=== PATIENT | male | born 1955 | race Caucasian/White ===

== ENCOUNTER 2020-02-04 07:38 | Outpatient (CLI) | payer OTHER, SELFPAY ==
--- NOTE | 2020-02-04 07:41 | MR_ITS ---
WS: [id number] MRI HEAD WITH CONTRAST TECHNIQUE: Sagittal T1, T2 axial, T2 axial FLAIR, axial susceptibility weighted imaging, axial diffus ion weighted images, and coronal T2 images were obtained. Pre and post-T1 axial and post T1 coronal i mages. ADC and FSPGR images. CLINICAL INFORMATION: EYE DISORDER;FACIAL WEAKNESS;OSTEOARTHRITIS COMPARISON: None. FINDINGS: Images moderately degraded by motion artifact. No evidence of restricted diffusion to suggest acute ischemia on the obtained imaging. Cerebellum not entirely included on the diffusion imaging. Ventricular system and basal cisterns are patent. Mild s mall vessel changes. Mild parenchymal volume loss. Normal posterior fossa. Normal vascular flow voids at the skull base. No extra-axial fluid collections. Mild mucosal thickening in the paranasal sinuse s. Mastoid air cells are well aerated. Moderate symmetric atrophy involving the temporal lobes and hippocampal formations. Normal optic alysa sm and pituitary infundibulum. Small punctate focus of hemosiderin on the susceptibility weighted dali ges in the left parietal lobe. No abnormal gadolinium enhancement. Normal dural venous sinuses. Trista l cavernous sinuses and Meckel's cave.Enhancing nodule right parotid tail measuring 11 mm. This is at the edge of the [id number]. MR/MR head wo/w con [id number] IMPRESSION: Images moderately degraded by motion artifact. 1. No evidence of restricted diffusion to suggest acute ischemia. Cerebellum n ot entirely included on the diffusion images. 2. Mild small vessel changes with mild parenchymal volume loss. 3. Moderate symmetric atrophy involving the temporal lobes and hippocampal for mations. 4. No abnormal gadolinium enhancement. 5. Mild polypoid mucosal thickening in the paranasal sinuses. Mastoid air cell s are well aerated. 6. Single punctate focus of hemosiderin in the left parietal lobe on the susce ptibility weighted images. 7. Enhancing nodule right parotid tail measuring 11 mm. This is at the edge of the [id number]. This can be followed up with contrast-enhanced neck CT.
== END 2020-02-04 07:39 | disposition home or self-care (01) ==
PROVIDERS: PCP Electrodiagnostic Medicine; Visit Provider Electrodiagnostic Medicine
DX: H57.9 Unspecified disorder of eye and adnexa (principal); R29.810 Facial weakness; M19.90 Unspecified osteoarthritis, unspecified site; G31.9 Degenerative disease of nervous system, unspecified
CPT/HCPCS: 70553; A9579

== ENCOUNTER → 2020-07-19 11:30 | Outpatient (BNVA) | payer OTHER, SELFPAY | PROVIDERS: PCP Electrodiagnostic Medicine; Visit Provider Specialist | DX: G51.32 Clonic hemifacial spasm, left (principal); R29.810 Facial weakness; Z87.891 Personal history of nicotine dependence | CPT/HCPCS: 99204 ==

== ENCOUNTER 2020-07-19 14:42 | Outpatient (CLI) | payer OTHER, SELFPAY ==
[2020-07-19 15:53] LABS: Erythrocyte Sedimentation Rate 15 mm/hr (0-10)
[2020-07-19 16:18] LABS: C Reactive Protein 8.5 mg/L (0.0-4.9)
[2020-07-23 19:37] LABS: Acetylcholine Receptor Block <15 (<15)
[2020-07-26 01:49] LABS: Acetylcholine Receptor Binding <0.30 nmol/L
[2020-07-28 17:01] LABS: Acetylcholine Recept Modulatin <1
== END 2020-07-19 14:43 | disposition home or self-care (01) ==
PROVIDERS: PCP Electrodiagnostic Medicine; Visit Provider Specialist
DX: G70.00 Myasthenia gravis without (acute) exacerbation (principal); M31.6 Other giant cell arteritis
CPT/HCPCS: 36415; 83516; 83519; 85651; 86140

== ENCOUNTER 2020-08-11 13:05 | Outpatient (CLI) | payer OTHER, SELFPAY ==
--- NOTE | 2020-08-11 13:11 | CT_ITS ---
WS: [id number] CT NECK TECHNIQUE: Noncontrast CT of the neck with coronal and sagittal reformatted images. CLINICAL INFORMATION: G70.00 - Myasthenia gravis without (acute) exacerbation COMPARISON: MRI February 04, 2020 DLP: [address] scans at [facility] use at least one of these dose optimization techniques: automat ed exposure control; mA and/or kV adjustment per patient size (includes targeted exams where dose is matched to clinical indication); or iterative reconstruction. FINDINGS: Enhancing lesion right parotid tail measuring 10.5 x 10.7 x 16.5 mm AP by transverse by craniocaudal. This is unchanged since the prior MRI February 04, 2020. Differential considerations include small p arotid neoplasm versus abnormally enlarged intraparotid lymph node. Consider ENT consultation for fur ther evaluation. Otherwise a few incidental parotid and intraparotid lymph nodes bilaterally. Submandibular glands are normal. Tongue base appears normal. Slight asymmetry to the right palatine t onsil. No focal enhancing lesions. This can be further evaluated with direct visualization. Paraphary ngeal fat is normal. Normal posterior nasopharynx. No evidence of supraglottic or glottic mass. Subgl ottic airway is normal. Normal thyroid gland. Mastoid air cells are well aerated. Polypoid mucosal thickening involving the m axillary ostia and ethmoid air cells bilaterally. Spondylitic changes cervical spine. Hypertrophic ch anges lower cervical spine. Normal C1-2 articulation. No cervical lymphadenopathy. CT/CT neck wo con [id number] IMPRESSION: 1. Again seen is the enhancing right parotid tail lesion measuring 10.5 x 10.7 x 16.5 mm AP by transverse by craniocaudal. This appears stable since the prio r MRI February 04, 2020.Differential considerations include small parotid neopl asm versus abnormally enlarged intraparotid lymph node. Consider ENT consultati on for further evaluation. Recommend 6 month follow-up contrast-enhanced neck C T. 2. Parotid glands otherwise normal. 3. Slight asymmetric fullness to the right palatine tonsil may be incidental b ut is nonspecific. Recommend direct visualization. 4. No evidence of supraglottic or glottic mass. Normal subglottic airway. 5. Normal submandibular glands. 6. No cervical lymphadenopathy. 7. Polypoid mucosal thickening in the paranasal sinuses.
--- NOTE | 2020-08-11 13:30 | CT_ITS ---
WS: [id number] CTA HEAD AND NECK TECHNIQUE: Contrast enhanced CTA of the head and neck with coronal and sagittal reformatted images an d maximum intensity projection (MIP) images. NASCET criteria utilized. CLINICAL INFORMATION: G70.00 - Myasthenia gravis without (acute) exacerbation COMPARISON: MRI January 2020 DLP: 1599.[address] scans at [facility] use at least one of these dose optimization techniques: automat ed exposure control; mA and/or kV adjustment per patient size (includes targeted exams where dose is matched to clinical indication); or iterative reconstruction. FINDINGS: Mild small vessel changes. Moderate parenchymal volume loss. No evidence of intracranial he morrhage or mass effect. Mastoid air cells are well aerated. Polypoid mucosal thickening in the paran kandice sinuses. Partial opacification of the ethmoid air cells and maxillary ostia. RIGHT: Right common carotid artery is patent. Mild calcified atheromatous plaque right carotid bulb e xtending into the ICA. No significant right ICA stenosis. Right ICA is patent to the skull base. LEFT: Left common carotid artery is patent. Mild atheromatous plaque left carotid bulb extending into the ICA. Left ICA stenosis measures approximately 35%. Left ICA is patent to the skull base. INTRACRANIAL CTA: Small hypoplastic vertebral arteries bilaterally. Both vertebral arteries are patent to the basilar j unction. Diminutive basilar artery with dominant anterior circulation. Normal vascularity to the [place] territory bilaterally. Persistent right [place]. Both ICAs are patent at the skull base. Moderate cavernous carotid calcification. Normal vascularity to the [place]OR[place] and MCA territories bilaterally. No evidence of high-grade proximal stenosis. Mild spondylitic changes cervical spine with hypertrophic changes in the lower cervical spine. Enhanc ing 13 mm parotid lesion right parotid tail is similar to the prior MRI. This will be further discuss ed on the neck CT. CT/CT angio headneck* [id number] IMPRESSION: 1. No significant right ICA stenosis. Left ICA stenosis measures approximately 35%. 2. No flow-limiting intracranial stenosis. Persistent right [place]. 3. Mild intracranial atheromatous disease. 4. Small but patent vertebral arteries bilaterally. Diminutive basilar artery with anterior dominant circulation. 5. Mild small vessel changes with moderate parenchymal volume loss. 6. Polypoid mucosal thickening in the paranasal sinuses with partial opacifica tion of the maxillary ostia.
[2020-08-11 14:37] LABS: Blood Urea Nitrogen 18 mg/dL (8-23); Glomerular Filtration Rate 84.2 mL/min (90-130)
[2020-08-11] MEDS: iohexol 350 mg/mL 100 mL Btl IV (14:53)
== END 2020-08-11 13:06 | disposition home or self-care (01) ==
LOC: RADWPI 13:08
PROVIDERS: PCP Electrodiagnostic Medicine; Visit Provider Specialist
DX: G70.00 Myasthenia gravis without (acute) exacerbation (principal); Z01.812 Encounter for preprocedural laboratory examination; I67.2 Cerebral atherosclerosis
CPT/HCPCS: 36415; 70490; 70496; 70498; 82565; 84520; Q9967

== ENCOUNTER → 2020-09-12 15:18 | Outpatient (BNVA) | payer OTHER, SELFPAY | PROVIDERS: PCP Electrodiagnostic Medicine; Visit Provider Specialist | DX: G51.32 Clonic hemifacial spasm, left (principal); R29.810 Facial weakness; G31.84 Mild cognitive impairment of uncertain or unknown etiology; Z87.891 Personal history of nicotine dependence | CPT/HCPCS: 99214 ==

== ENCOUNTER 2020-10-19 11:42 | Emergency (ER) | payer OTHER, SELFPAY ==
[2020-10-19] VITALS (7 sets, daily range): BP systolic 180–187; BP diastolic 72–131; PULSE 65–149; RESP 16–20; TEMP 37.2; O2SAT 96–98; BMI 35.7
--- NOTE | 2020-10-19 12:28 | XR_ITS ---
WS: [id number] Portable AP upright chest, 10/19/2020 Clinical Data: fever, SOB Comparison: PA and lateral chest, 03/08/2017. Findings: No nodules, masses or effusions are seen. The heart is normal. The pulmonary vascularity is not increased. No pneumonia or pneumothorax is seen. The aortic arch shows minimal calcification. XR/XR chest 1V portable [id number] Impression: Atherosclerosis.
[2020-10-19 12:59] LABS: Basophils % 0.3 %; Hematocrit 49.8 % (42.0-52.0); Hemoglobin 16.6 g/dL (11.7-16.6); Lymphocytes # 0.7 10^3/uL (0.8-4.8); Lymphocytes % 19.5 %; Mean Corpuscular HGB Conc 33.3 g/dL (30.0-36.0); Mean Corpuscular Hemoglobin 29.4 pg (28.0-34.0); Mean Corpuscular Volume 88.3 fL (80-94); Mean Platelet Volume 9.5 fL (7.4-10.4); Monocytes # 0.5 10^3/uL (0.2-0.9); Monocytes % 13.3 %; Neutrophils # 2.46 10^3/uL (1.8-7.7); Neutrophils % 66.6 %; Nucleated Red Blood Cells % 0 %; Platelet Count 191 10^3/cmm (130-400); Red Blood Count 5.64 10^6/uL (4.1-5.3); Red Cell Distribution Width 13.3 % (12.1-15.1); White Blood Count 3.7 10^3/uL (4.0-10.0)
[2020-10-19 13:04] LABS: Influenza A by IFA Negative (Negative); Influenza B by IFA Negative (Negative); SARS Covid-2 Antigen Positive (Negative)
[2020-10-19 14:08] LABS: Fibrinogen 461 mg/dL (174-498)
[2020-10-19 14:11] LABS: D Dimer 0.87 ug/mIFEU (0-0.59)
[2020-10-19 14:16] LABS: Alanine Aminotransferase 26 U/L (0-41); Albumin Level 4.3 g/dL (3.5-5.2); Alkaline Phosphatase 74 IU/L (40-130); Anion Gap 16.4 (5-19); Aspartate Amino Transferase 35 U/L (0-40); Blood Urea Nitrogen 24 mg/dL (8-23); C Reactive Protein 9.8 mg/L (0.0-4.9); Calcium 8.5 mg/dL (8.5-10.5); Carbon Dioxide 26 mmol/L (22-29); Chloride 96 mmol/L (98-107); Ferritin 308 ng/mL (30-400); Globulin 2.8 g/dL (1.3-4.6); Glomerular Filtration Rate 55.1 mL/min (90-130); Glucose 102 mg/dL (65-115); Osmolality Calculated 282 mOsm/kg (285-295); Potassium 4.4 mmol/L (3.5-5.1); Sodium 134 mmol/L (136-145); Total Bilirubin 0.4 mg/dL (0.15-1.2); Total Protein 7.1 g/dL (6.6-8.7)
[2020-10-19 14:17] LABS: Creatine Phosphokinase 363 U/L (39-308); Lactate (Lactic Acid level) 0.9 mmol/L (0.5-2.2)
[2020-10-19 14:20] LABS: Procalcitonin 0.16 ng/mL (0-0.5)
--- NOTE | 2020-10-19 14:36 | W.ED.COVID ---
HPI - COVID General: Chief Complaint: COVID symptoms Stated Complaint: cramps,fever, check oxygen? Time Seen by Provider: 10/19/20 12:04 Source: patient and RN notes reviewed Mode of arrival: ambulatory Limitations: no limitations Triage information: Has fever, cough or shortness of breath. Exposure to COVID + person last 14 days History of Present Illness: HPI Narrative: Patient is a 65 year old male with no significant PMH who presents to the ED with a 7 day history of diarrhea, fever, loss of taste, loss of appetite. He is was sick a few days before his symptoms started. He has a mild cough but no difficulty breathing. No vomiting, has a lot of diarrhea. Because of the above he is here to be evaluated. MD complaint: has COVID symptoms Prior covid testing: no COVID 19 common symptoms: positive fever(s), cough, non-productive cough, fatigue, body aches, loss of sense of smell and/or taste and diarrhea; negative dyspnea, headache(s), throat pain, nasal congestion, nausea or vomiting COVID 19 other sytmptoms: negative chest pressure, chest pain, pleuritic pain, requiring oxygen, requiring more oxygen, respiratory distress, cyanosis, lethargy, confusion, new neurological complaints or other concerning symptoms Onset (ago): day(s) (7) Severity: moderate Pertinent comorbid conditions: obesity COVID Results: SARS-CoV-2 Antigen (Rapid) Positive (Negative) H 10/19/20 12:39 10/19/20 Review of Systems General: Reports: 10 or more systems reviewed and unremarkable except in HPI and below Const: Reports: fever(s), body aches and fatigue ENMT: Denies: throat pain or nasal congestion Card: Denies: chest pain Resp: Reports: non-productive cough; Denies: dyspnea GI: Reports: diarrhea; Denies: nausea or vomiting Neuro: Denies: headache(s) or confusion PFSH ED PFSH: Family History Mother Cancer Liver Father CAD (coronary artery disease) Social History Smoking and tobacco status: former smoker Quit status (tobacco): has quit using tobacco Year quit tobacco: 2019 Alcohol intake: never History of recent travel: No Physical Exam Const: COMMON NORMALS: no acute distress, average body habitus, patient oriented x3, no limitations, healthy appearing, alert and well nourished HENMT: COMMON NORMALS: normocephalic, atraumatic and moist oral mucous membranes HEAD & SCALP: normocephalic and atraumatic Neck/C-Spine: COMMON NORMALS: no meningeal signs and no JVD Resp: COMMON NORMALS: normal respiratory effort, No retractions, No use of accessory muscles, clear to auscultation bilaterally and percussion normal AUSCULTATION: clear to auscultation bilaterally PERCUSSION: percussion normal Cardio: COMMON NORMALS: no JVD, regular rate, regular rhythm, S1 normal heart sound present, S2 normal heart sound present, No gallops present (Cardio), No clicks present (Cardio), No murmurs present (Cardio), No rub (Cardio) and Peripheral pulses 2+ throughout RATE: regular rate RHYTHM: regular rhythm HEART SOUNDS: S1 normal heart sound present and S2 normal heart sound present PERIPHERAL PULSES: Peripheral pulses 2+ throughout GI: COMMON NORMALS: Normal to inspection, nondistended, normoactive bowel sounds present, Soft to palpation, non-tender, No hepatosplenomegaly present, no masses and no bruits PALPATION: Yes Soft to palpation and Yes No hepatosplenomegaly present Extremity: COMMON NORMALS: normal to inspection, full ROM, capillary refill normal, no calf tenderness and no pedal edema Neuro: COMMON NORMALS: patient oriented x3 SENSORIUM/ORIENTATION: Yes alert MENINGEAL SIGNS: Yes no meningeal signs Skin: COMMON NORMALS: no rashes or lesions noted, no wounds, turgor normal, no jaundice, no petechiae and no mottling GENERAL SKIN EXAM: no rashes or lesions noted and turgor normal Course Vital Signs: Vital signs: Vital Signs Temperature 98.9 F 10/19/20 11:54 Pulse Rate 90 10/19/20 16:55 Respiratory Rate 18 10/19/20 16:55 Blood Pressure 181/88 10/19/20 16:55 Pulse Oximetry 96 10/19/20 16:55 MDM - COVID MDM Narrative: Medical decision making narrative: This pleasant 65 year old male presents with a 7 day history of diarrhea, vomiting, fever. In the ED he tested positive for COVID-19, and after counseling he agreed to monoclonal antibody infusion. He meets the criteria. He is not hypoxic. He suffered no adverse reaction to the medication after being observed in the ED for one hour post infusion. He is to f/u with his PCP via telemedicine and he is discharged home with a pulse oximeter to check his oxygen saturation and to return for persistent hypoxia. He had mild rhabdomyolysis and RITA. Medical Records: Attestation: I reviewed the patient's medical records. Lab Data: Attestation: I reviewed the patient's lab results. Labs: Lab Results 10/19/20 10/19/20 10/19/20 Range/Units 12:39 12:39 12:45 WBC 3.7 L (4.0-10.0) 10^3/ uL RBC 5.64 H (4.1-5.3) 10^6/u L Hgb 16.6 (11.7-16.6) g/dL Hct 49.8 (42.0-52.0) % MCV 88.3 (80-94) fL MCH 29.4 (28.0-34.0) pg MCHC 33.3 (30.0-36.0) g/dL RDW 13.3 (12.1-15.1) % Plt Count 191 (130-400) 10^3/c mm MPV 9.5 (7.4-10.4) fL Neut % (Auto) 66.6 % Lymph % (Auto) 19.5 % [place] % (Auto) 13.3 % Eos % (Auto) 0.0 % Baso % (Auto) 0.3 % Neut # (Auto) 2.46 (1.8-7.7) 10^3/u L Lymph # (Auto) 0.7 L (0.8-4.8) 10^3/u L [place] # (Auto) 0.5 (0.2-0.9) 10^3/u L Eos # (Auto) 0.0 (0.0-0.8) 10^3/u L Baso # (Auto) 0.0 (0.0-0.1) 10^3/u L Nucleated RBC % (a uto) 0 % Nucleated RBCs # 0.0 /100WBC Fibrinogen (174-498) mg/dL D-Dimer (0-0.59) ug/mIFE U Sodium Potassium Chloride Carbon Dioxide Anion Gap BUN Creatinine GFR Calculation Glucose Calculated Osmolal ity Lactic Acid Lactate (0.5-2.2) mmol/L Calcium Ferritin Total Bilirubin AST ALT Alkaline Phosphata se Creatine Kinase CK-MB (CK-2) (0-10.4) ng/mL CK-MB (CK-2) Rel I ndex (0.0-5.3) % C-Reactive Protein Total Protein Albumin Globulin Procalcitonin Influenza Type A A g Negative (Negative) Influenza Type B A g Negative (Negative) SARS-CoV-2 Ag (Rap id) Positive H (Negative) 10/19/20 10/19/20 10/19/20 Range/Units 12:45 12:45 13:47 WBC (4.0-10.0) 10^3/ uL RBC (4.1-5.3) 10^6/u L Hgb (11.7-16.6) g/dL Hct (42.0-52.0) % MCV (80-94) fL MCH (28.0-34.0) pg MCHC (30.0-36.0) g/dL RDW (12.1-15.1) % Plt Count (130-400) 10^3/c mm MPV (7.4-10.4) fL Neut % (Auto) % Lymph % (Auto) % [place] % (Auto) % Eos % (Auto) % Baso % (Auto) % Neut # (Auto) (1.8-7.7) 10^3/u L Lymph # (Auto) (0.8-4.8) 10^3/u L [place] # (Auto) (0.2-0.9) 10^3/u L Eos # (Auto) (0.0-0.8) 10^3/u L Baso # (Auto) (0.0-0.1) 10^3/u L Nucleated RBC % (a uto) % Nucleated RBCs # /100WBC Fibrinogen 461 (174-498) mg/dL D-Dimer 0.87 H (0-0.59) ug/mIFE U Sodium Cancelled Potassium Cancelled Chloride Cancelled Carbon Dioxide Cancelled Anion Gap Cancelled BUN Cancelled Creatinine Cancelled GFR Calculation Cancelled Glucose Cancelled Calculated Osmolal ity Cancelled Lactic Acid Cancelled Lactate (0.5-2.2) mmol/L Calcium Cancelled Ferritin Cancelled Total Bilirubin Cancelled AST Cancelled ALT Cancelled Alkaline Phosphata se Cancelled Creatine Kinase Cancelled CK-MB (CK-2) (0-10.4) ng/mL CK-MB (CK-2) Rel I ndex (0.0-5.3) % C-Reactive Protein Cancelled Total Protein Cancelled Albumin Cancelled Globulin Cancelled Procalcitonin Cancelled Influenza Type A A g (Negative) Influenza Type B A g (Negative) SARS-CoV-2 Ag (Rap id) (Negative) 10/19/20 10/19/20 Range/Units 13:47 13:47 WBC (4.0-10.0) 10^3/ uL RBC (4.1-5.3) 10^6/u L Hgb (11.7-16.6) g/dL Hct (42.0-52.0) % MCV (80-94) fL MCH (28.0-34.0) pg MCHC (30.0-36.0) g/dL RDW (12.1-15.1) % Plt Count (130-400) 10^3/c mm MPV (7.4-10.4) fL Neut % (Auto) % Lymph % (Auto) % [place] % (Auto) % Eos % (Auto) % Baso % (Auto) % Neut # (Auto) (1.8-7.7) 10^3/u L Lymph # (Auto) (0.8-4.8) 10^3/u L [place] # (Auto) (0.2-0.9) 10^3/u L Eos # (Auto) (0.0-0.8) 10^3/u L Baso # (Auto) (0.0-0.1) 10^3/u L Nucleated RBC % (a uto) % Nucleated RBCs # /100WBC Fibrinogen (174-498) mg/dL D-Dimer (0-0.59) ug/mIFE U Sodium 134 L Potassium 4.4 Chloride 96 L Carbon Dioxide 26 Anion Gap 16.4 BUN 24 H Creatinine 1.3 H GFR Calculation 55.1 L Glucose 102 Calculated Osmolal ity 282 L Lactic Acid Lactate 0.9 (0.5-2.2) mmol/L Calcium 8.5 Ferritin 308 Total Bilirubin 0.4 AST 35 ALT 26 Alkaline Phosphata se 74 Creatine Kinase 363 H* CK-MB (CK-2) 3.8 (0-10.4) ng/mL CK-MB (CK-2) Rel I ndex (0.0-5.3) % C-Reactive Protein 9.8 H Total Protein 7.1 Albumin 4.3 Globulin 2.8 Procalcitonin 0.16 Influenza Type A A g (Negative) Influenza Type B A g (Negative) SARS-CoV-2 Ag (Rap id) (Negative) Imaging Data: CXR: Attestation: I personally reviewed and interpreted this imaging study as follows: Radiologist's impression: [place] [address] [address]NBaw ReportSigned Patient: Jamilah Cha #: [id number]: 1955cct#:[id number]/Sex: 65 / MADM Date: 10/19/20Loc: ERRoom/Bed:Attending Dr: Ordering Provider/Ordering MD: Tanvi Pérez MD, [facility] [place] Date of Service: 10/19/20 Procedure(s): XR chest 1V portable [id number] Accession Number(s): [id number] Report Number: [id number] WS: [id number] Portable AP upright chest, 10/19/2020 Clinical Data: fever, SOB Comparison: PA and lateral chest, 03/08/2017. Findings: No nodules, masses or effusions are seen. The heart is normal. The pulmonary vascularity is not increased. No pneumonia or pneumothorax is seen. The aortic arch shows minimal calcification. XR/XR chest 1V portable [id number] Impression: Atherosclerosis. Dictated By:Nancy Quintana MDSigned By:Nancy Quintana MDSigned Date/Time:10/19/20 1307DD/ 1306 COVID Results: SARS-CoV-2 Antigen (Rapid) Positive (Negative) H 10/19/20 12:39 10/19/20 Monoclonal Antibody Treatments Inclusion/Exclusion Criteria weight >/= 40 kg and + direct Sars-Cov-2 test less than 7-10 days ago age >/= 65 and BMI >/= 35 not requiring hospitalization, not requiring oxygen (if not chronically on oxygen) and no increase oxygen requirement (if chronically on oxygen) Patient education patient/family/caregiver received/reviewed fact sheet, Emergency Use Authorization/unapproved drug status discussed with patient/family/caregiver, alternatives to this treatment discussed with patient/family/caregiver, risks and benefits of medication reviewed with patient/family/caregiver, patient/family/caregiver given opportunity for questions, which were answered and patient consents to receiving Monoclonal Antibody Treatment Plan for treatment Meets criteria for Monoclonal Antibody infusion Ordering Monoclonal Antibody infusion for today Discharge Plan Discharge Patient Disposition: Home Clinical Impression: COVID-19, Rhabdomyolysis due to COVID-19, RITA (acute kidney injury) Condition: Stable Prescriptions: Continued gabapentin 300 mg capsule 300 mg PO TID Qty: 90 RF: 2 Discharge Orders: Discharge ED (Routine); Ordered 10/19/20 Ordered By: Tanvi Pérez Referrals: Joel Sky DO [Primary Care Provider] - 1-3 days Discharge Diet: Usual diet Discharge Activity: Increase activity as tolerated Patient Instructions: Acute Kidney Injury (GEN), Rhabdomyolysis (ED), Viral Syndrome (ED) Activity Restrictions/Additional Instructions: Return for any new or worsening symptoms. Follow up with your primary care provider within 3 days via telemedicine. Monitor your oxygen levels using the pulse oximeter that you were sent home with, if your oxygen levels drop and stay below 90%. Coding Level of Care Code ED [employer] Exam Comprehensive
[2020-10-19 15:05] LABS: CKMB 3.8 ng/mL (0-10.4)
[2020-10-19 15:36] LABS: Reflex Lactate Order REFLEX LACTIC ORDERD
--- NOTE | 2020-10-19 16:00 | PC.NURSE ---
reviewed patient bp being elevated and that I repeated with manual cuff. he states that he needs to follow up with his regular doctor for his blood pressure and I informed the patient.
--- NOTE | 2020-10-25 13:54 | DCPLANNER ---
cost estimating manager had message that patient received the monoclonal antibody infusion. cost estimating manager called to check on patient after receiving the infusion. Patient stated that he is feeling much better, and that all of the symptoms before the infusion have resolved.
== END 2020-10-19 16:50 | disposition home or self-care (01) ==
PROVIDERS: Emergency Provider Family Medicine; PCP Electrodiagnostic Medicine
DX: U07.1 COVID-19 (principal); M62.82 Rhabdomyolysis; N17.9 Acute kidney failure, unspecified; E66.9 Obesity, unspecified; Z68.35 Body mass index [BMI] 35.0-35.9, adult; Z87.891 Personal history of nicotine dependence
CPT/HCPCS: 71045; 80053; 82550; 82553; 82728; 83605; 84145; 85025; 85378; 85384; 86140; 87426; 87804; 96365; 99284

== ENCOUNTER → 2020-12-29 09:44 | Outpatient (BNVA) | payer OTHER, SELFPAY | PROVIDERS: PCP Electrodiagnostic Medicine; Visit Provider Specialist | DX: G51.32 Clonic hemifacial spasm, left (principal); R29.810 Facial weakness; G31.84 Mild cognitive impairment of uncertain or unknown etiology; Z87.891 Personal history of nicotine dependence | CPT/HCPCS: 64612; J0585 ==

== ENCOUNTER → 2021-03-23 14:35 | Outpatient (BNVA) | payer OTHER, SELFPAY | PROVIDERS: PCP Electrodiagnostic Medicine; Visit Provider Specialist | DX: G51.32 Clonic hemifacial spasm, left (principal); Z87.891 Personal history of nicotine dependence | CPT/HCPCS: 64612; J0585 ==

== ENCOUNTER 2022-11-11 18:28 | Emergency (ER) | payer OTHER, SELFPAY ==
[2022-11-11] VITALS (8 sets, daily range): BP systolic 103–153; BP diastolic 70–114; PULSE 71–87; RESP 12–17; O2SAT 93–98
--- NOTE | 2022-11-11 18:58 | W.ED.ABDPA2 ---
HPI - Abdominal Pain General: Chief Complaint: Abdominal Pain Stated Complaint: abdomen, n/v Time Seen by Provider: 11/11/22 18:30 History of Present Illness: Evaristo Cha is a 67-year-old man that presents to the emergency department with complaints of abdominal pain that started 2 weeks ago. 2 weeks ago he started with diffuse abdominal pain, nausea vomiting diarrhea and a fever of 103. This lasted for about 6 days. He went to [place] [facility] 1 week ago because he believes he had COVID. They would not treat him and therefore he left. Over the last week patient began to feel better. His symptoms did not completely resolve. He was able to start eating regular meals early to mid week. Then last night he began vomiting again, developed a fever and developed diffuse abdominal pain. Patient denies any medical history other than trigeminal neuralgia. The only medication he takes is tramadol. He has had back surgery and knee surgery Associated Symptoms: Denies bloating, chills, constipation, GI cramping, diarrhea, dysuria, fever(s), hematochezia, hematuria, nausea and vomiting Review of Systems General: Reports: 10 or more systems reviewed and unremarkable except in HPI and below Const: Denies: fever(s), chills, change in appetite, change in weight, fatigue or malaise Eyes: Denies: change in vision, eye discomfort, eye discharge or eye redness ENMT: Denies: throat pain, enlarged tonsils, odynophagia, hoarseness, ear or mastoid pain, ear discharge, change in hearing, tinnitus, nasal discharge, nasal congestion, post nasal drip or sinus pain Card: Denies: chest pain, palpitations, irregular heart rhythm, edema, dyspnea on exertion, orthopnea or leg pain with exertion Resp: Denies: dyspnea, productive cough, non-productive cough, wheezing, stridor or chest congestion GI: Denies: abdominal pain, nausea, vomiting, dysphagia, diarrhea, constipation, bloating, GI cramping or hematochezia : Denies: flank pain, dysuria, urinary frequency, urinary urgency, urinary hesitancy, oliguria or hematuria Musc: Denies: neck pain, back pain, extremity pain, joint pain, joint swelling, joint redness, joint warmth or muscle weakness Skin/Breast: Denies: rash, pruritus, erythema, photosensitivity or new lesions Neuro: Denies: headache(s), numbness in extremities, weakness in extremities, sensory changes, lack of coordination, difficulty walking, frequent falls, dizziness, confusion, Slurred speech present, difficulty communicating thoughts, seizure-like activity or involuntary movements Endo: Denies: polyuria, polydipsia or tired all the time [place]/Lymph: Denies: easy bruising or easy bleeding PFSH ED PFSH: Family History Mother Cancer Liver Father CAD (coronary artery disease) Social History Smoking and tobacco status: former smoker Quit status (tobacco): has quit using tobacco Year quit tobacco: 2019 Alcohol intake: never Substance/Drug Use: never Physical Exam Const: COMMON NORMALS: no acute distress, patient oriented x3 and alert GENERAL APPEARANCE: cooperative ORIENTATION/CONSCIOUSNESS: Yes awake, Yes oriented to person, Yes oriented to place and Yes oriented to time HENMT: COMMON NORMALS: normocephalic and atraumatic HEAD & SCALP: normocephalic and atraumatic FACE & SINUS: normal facial exam MOUTH: Normal oral and palatal mucosa present THROAT: posterior oropharynx normal Eye: COMMON NORMALS: Equal, round and reactive pupils present, EOMs intact bilaterally, conjunctivae normal and no scleral icterus GENERAL EYE: appearance normal, both eyes and all related structures ALIGNMENT: Yes alignment normal PERIORBITAL: periorbital findings normal CONJUNCTIVA: Yes conjunctivae normal PUPIL: Yes Equal, round and reactive pupils present Neck/C-Spine: COMMON NORMALS: full ROM GENERAL: Yes normal visual inspection Lymph: LYMPHATIC: no lymphadenopathy noted Chest: COMMONS NORMALS: normal inspection of the chest Breast/axilla inspection: Yes no chest deformity, asymmetry, normal contours, no nodules, masses, tenderness Resp: COMMON NORMALS: normal respiratory effort, No retractions, No use of accessory muscles and clear to auscultation bilaterally EFFORT & INSPECTION: Yes able to speak in complete sentences and Yes symmetric chest movement AUSCULTATION: clear to auscultation bilaterally Cardio: COMMON NORMALS: regular rate, regular rhythm and Peripheral pulses 2+ throughout RATE: regular rate RHYTHM: regular rhythm PERIPHERAL PULSES: Peripheral pulses 2+ throughout GI: COMMON NORMALS: Normal to inspection, nondistended, normoactive bowel sounds present, Soft to palpation, non-tender and No hepatosplenomegaly present INSPECTION: Yes normal to inspection AUSCULTATION: Yes normoactive bowel sounds PALPATION: Yes Soft to palpation, Yes Tenderness to palpation present (GI) Details: RLQ and Yes No hepatosplenomegaly present RECTAL EXAM: Yes deferred Extremity: COMMON NORMALS: normal to inspection GENERAL: Yes normal exam except as noted Neuro: COMMON NORMALS: patient oriented x3 SENSORIUM/ORIENTATION: Yes alert, Yes oriented to person, Yes oriented to place and Yes oriented to time CRANIAL NERVES: Yes CN normal except as noted Psych: COMMON NORMALS: mental status grossly normal, Normal thought process present, cooperative, activity/motor behavior normal, denies homicidal ideation and denies suicidal ideation THOUGHT PROCESS: Normal thought process present Skin: COMMON NORMALS: no rashes or lesions noted, no wounds and turgor normal GENERAL SKIN EXAM: no rashes or lesions noted and turgor normal Course Vital Signs: Vital signs: Vital Signs Pulse Rate 76 11/11/22 19:49 Respiratory Rate 17 11/11/22 19:49 Blood Pressure 148/83 11/11/22 19:49 Pulse Oximetry 94 11/11/22 19:49 Oxygen Delivery Me thod Room Air 11/11/22 19:49 MDM - Abdominal Pain Medical Decision Making Was evaluated in the emergency department for complaints of abdominal pain x2 weeks with fever nausea vomiting diarrhea constipation differential diagnosis for this gentleman included gastroenteritis, gastritis, pancreatitis, cholelithiasis, cholecystitis, appendicitis, diverticulitis, constipation, Patient underwent laboratory evaluation that included a CBC, CMP, lipase, lactic acid. I also obtained a urinalysis. Patient does have a leukocytosis of 14.7. No anemias. Lactic acid is normal lipase is normal chemistry panel is largely unremarkable. Patient did undergo CT of the abdomen and pelvis with contrast. It revealed minimal edema about the mid sigmoid colon in the area of several diverticuli which may reflect mild diverticulitis. He also was found to have an incidental abdominal aortic aneurysm that measures 3 cm in diameter. No is constipated. On the urinalysis had trace bacteria with 5-10 white blood cells and blood. Talked with patient about his GI symptoms as well as urinary findings. We have elected to treat him with Flagyl and Cipro. I encouraged him to follow-up with his primary care doctor on Saturday. They should call for an appointment. I would want him to be rechecked for the hematuria and white blood cells in his urine. The incidental finding of infrarenal abdominal aortic aneurysm, he is going to follow-up with Dr. Brandon Dawson of [facility] vascular. He is to call Saturday for an appointment. Medically he is doing very well. He is comfortable, normotensive, has a heart rate of 80s. I think he is safe to go home. I am going to start his antibiotics here and he needs to pick them up in the morning. Lab Data 11/11/22 18:52 11/11/22 18:52 Labs/Radiology: Radiology Impressions Abdomen/Pelvis CT 11/11/22 19:19 IMPRESSION: 1. Minimal edema about the mid sigmoid colon in the area of several diverticuli may reflect a mild diverticulitis. 2. Fusiform infrarenal abdominal aortic aneurysm measuring 3 cm in diameter. 3. Hepatic steatosis. 4. Constipation. Laboratory Results WBC 14.7 10^3/uL (4.0-10.0) H 11/11/22 18:52 RBC 5.19 10^6/uL (4.1-5.3) 11/11/22 18:52 Hgb 15.2 g/dL (11.7-16.6) 11/11/22 18:52 Hct 45.1 % (42.0-52.0) 11/11/22 18:52 MCV 86.9 fl (80-94) 11/11/22 18:52 MCH 29.3 pg (28.0-34.0) 11/11/22 18:52 MCHC 33.7 g/dL (30.0-36.0) 11/11/22 18:52 RDW 14.1 % (12.1-15.1) 11/11/22 18:52 Plt Count 342 10^3/cmm (130-400) 11/11/22 18:52 MPV 8.6 fL (7.4-10.4) 11/11/22 18:52 Neut % (Auto) 81.4 % 11/11/22 18:52 Lymph % (Auto) 11.9 % 11/11/22 18:52 [place] % (Auto) 5.8 % 11/11/22 18:52 Eos % (Auto) 0.2 % 11/11/22 18:52 Baso % (Auto) 0.3 % 11/11/22 18:52 Neut # (Auto) 11.97 10^3/uL (1.8-7.7) H 11/11/22 18:52 Lymph # (Auto) 1.8 10^3/uL (0.8-4.8) 11/11/22 18:52 [place] # (Auto) 0.9 10^3/uL (0.2-0.9) 11/11/22 18:52 Eos # (Auto) 0.0 10^3/uL (0.0-0.8) 11/11/22 18:52 Baso # (Auto) 0.1 10^3/uL (0.0-0.1) 11/11/22 18:52 Nucleated RBC % (auto) 0 % 11/11/22 18:52 Nucleated RBCs # 0.0 /100WBC 11/11/22 18:52 Sodium 136 mmol/L (136-145) 11/11/22 18:52 Potassium 4.9 mmol/L (3.5-5.1) 11/11/22 18:52 Chloride 101 mmol/L (98-107) 11/11/22 18:52 Carbon Dioxide 20 mmol/L (22-29) L 11/11/22 18:52 Anion Gap 19.9 (5-19) H 11/11/22 18:52 BUN 17 mg/dL (8-23) 11/11/22 18:52 Creatinine 0.9 mg/dL (0.7-1.2) 11/11/22 18:52 GFR Calculation 83.7 mL/min (90-130) L 11/11/22 18:52 Glucose 119 mg/dL (65-115) H 11/11/22 18:52 Calculated Osmolality 285 mOsm/kg (285-295) 11/11/22 18:52 Lactic Acid 1.1 mmol/L (0.5-2.2) 11/11/22 18:52 Calcium 9.0 mg/dL (8.5-10.5) 11/11/22 18:52 Total Bilirubin 0.5 mg/dL (0.15-1.2) 11/11/22 18:52 AST 19 U/L (0-40) 11/11/22 18:52 ALT 21 U/L (0-41) 11/11/22 18:52 Alkaline Phosphatase 65 U/L (40-130) 11/11/22 18:52 Total Protein 7.2 g/dL (6.6-8.7) 11/11/22 18:52 Albumin 3.7 g/dL (3.5-5.2) 11/11/22 18:52 Globulin 3.5 g/dL (1.3-4.6) 11/11/22 18:52 Lipase 14 U/L (13-60) 11/11/22 18:52 Urine Color Yellow (Yellow) 11/11/22 19:20 Urine Appearance Clear (CLEAR) 11/11/22 19:20 Urine pH 7 (5-7) 11/11/22 19:20 Ur Specific [place] 1.005 (1.005-1.030) 11/11/22 19:20 Urine Protein Trace (Negative) 11/11/22 19:20 Urine Glucose (UA) Norm (Normal) 11/11/22 19:20 Urine Ketones Negative (Negative) 11/11/22 19:20 Urine Blood 3+ (Negative) H 11/11/22 19:20 Urine Nitrate Negative (Negative) 11/11/22 19:20 Urine Bilirubin Neg (Negative) 11/11/22 19:20 Urine Urobilinogen Norm mg/dL (Negative) 11/11/22 19:20 Ur Leukocyte Esterase Negative (Negative) 11/11/22 19:20 Urine RBC 0-4 /hpf (0-2) H 11/11/22 19:20 Urine WBC 5-10 /hpf (0-5) H 11/11/22 19:20 Ur Squamous Epith Cells 0-4 /hpf (0-5) H 11/11/22 19:20 Ur Transition Epith Cell 0-4 /hpf 11/11/22 19:20 Amorphous Sediment Not Reportable 11/11/22 19:20 Urine Bacteria Trace /hpf (NONE) 11/11/22 19:20 Hyaline Casts 0-4 /lpf H 11/11/22 19:20 Urine Mucus 1+ /hpf 11/11/22 19:20 Discharge Plan Discharge Patient Disposition: Home Clinical Impression: Diverticulitis, Constipation, Urinary tract infection, Aortic aneurysm Condition: Stable Prescriptions: New metronidazole 500 mg tablet 500 mg PO BID 7 Days Qty: 14 0RF ciprofloxacin HCl 500 mg tablet 500 mg PO BID 7 Days Qty: 14 0RF ondansetron 4 mg tablet,disintegrating 4 mg PO Q8H PRN (Reason: nausea and vomiting) 5 Days Qty: 20 0RF No Action gabapentin 300 mg capsule 300 mg PO TID Qty: 90 2RF terbinafine HCl 250 mg tablet 250 mg PO DAILY cephalexin 500 mg capsule 500 mg PO TID amoxicillin 500 mg capsule 500 mg PO ONCE Qty: 24 0RF Rx Instructions: Take 4 caps 1 hour prior to dental procedure Discharge Orders: Discharge ED (Routine); Ordered 11/11/22 Ordered By: Kalina Haynes Referrals: Joel Sky DO [Primary Care Provider] - Brandon Dawson MD [Referring] - Discharge Diet: Advance as tolerated Discharge Activity: Resume usual activity Patient Instructions: Abdominal Aortic Aneurysm, Diverticulitis (ED), Hematuria (ED), Diverticulitis Diet (ED), Interstitial Cystitis (ED), Pain Management Activity Restrictions/Additional Instructions: You need to follow-up with your primary care provider Saturday. Call for an appointment. You will want to have your urine rechecked Please take the antibiotics as prescribed. These 2 antibiotics are prescribed for diverticulitis but the Cipro will also cover your urine bacteria Call Dr. Brandon Dawson tomorrow. His office will set you up with an appointment. I am sending you with a copy of your CT and I will upload the CT to the [employer] system. They will have access to the images. Please return to the emergency department for new concerning or worsening symptoms Coding Level of Care Code ED Rug Sample Beveler for Nick Card
[2022-11-11 18:59] LABS: Basophils # 0.1 10^3/uL (0.0-0.1); Basophils % 0.3 %; Eosinophils % 0.2 %; Hematocrit 45.1 % (42.0-52.0); Hemoglobin 15.2 g/dL (11.7-16.6); Lymphocytes # 1.8 10^3/uL (0.8-4.8); Lymphocytes % 11.9 %; Mean Corpuscular HGB Conc 33.7 g/dL (30.0-36.0); Mean Corpuscular Hemoglobin 29.3 pg (28.0-34.0); Mean Corpuscular Volume 86.9 fl (80-94); Mean Platelet Volume 8.6 fL (7.4-10.4); Monocytes # 0.9 10^3/uL (0.2-0.9); Monocytes % 5.8 %; Neutrophils # 11.97 10^3/uL (1.8-7.7); Neutrophils % 81.4 %; Nucleated Red Blood Cells % 0 %; Platelet Count 342 10^3/cmm (130-400); Red Blood Count 5.19 10^6/uL (4.1-5.3); Red Cell Distribution Width 14.1 % (12.1-15.1); White Blood Count 14.7 10^3/uL (4.0-10.0)
[2022-11-11] MEDS: ondansetron 2 mg/ML SDV 2 mL 4 MG IVP (19:01)
[2022-11-11] MEDS: sodium chloride 0.9% 1,000 ML 999 ML IV (19:01)
--- NOTE | 2022-11-11 19:19 | CTR_ITS ---
PROCEDURE INFORMATION: Exam: CT Abdomen And Pelvis With Contrast Exam date and time: 11/11/2022 7:31 PM Age: 67 years old Clinical indication: Pain and abnormal findings; Abnormal lab test; Elevated wbc; Fever and nausea and vomiting; Abdominal pain; Generalized; Patient HX: Diffuse abd pain with n/v and fever. Wbc of 15k. ; Additional info: Abdominal pain, fever TECHNIQUE: Imaging protocol: Computed tomography of the abdomen and pelvis with contrast. Radiation optimization: All CT scans at this facility use at least one of these dose optimization techniques: automated exposure control; mA and/or kV adjustment per patient size (includes targeted exams where dose is matched to clinical indication); or iterative reconstruction. Contrast material: OMNI 350; Contrast volume: 100 ml; Contrast route: INTRAVENOUS (IV); REPORTING DATA: Count of CT and Cardiac NM exams in prior 12 months: This patient has received 0 known CTs and 0 known cardiac nuclear medicine studies in the 12 months prior to the current study. COMPARISON: CT kidney stone [id number] 03/26/2018 1:26 PM RADIATION DOSE METRICS: Total DLP (mGy-cm): 892.79 FINDINGS: Liver: Hepatic steatosis. Gallbladder and bile ducts: Normal. No calcified stones. No ductal dilation. Pancreas: Normal. No ductal dilation. Spleen: Normal. No splenomegaly. Adrenal glands: Normal. No mass. Kidneys and ureters: Normal. No hydronephrosis. Stomach and bowel: Minimal edema about the mid sigmoid colon in the area of several diverticuli may reflect a mild diverticulitis. Constipation. Appendix: No evidence of appendicitis. Intraperitoneal space: Unremarkable. No free air. No significant fluid collection. Vasculature: Fusiform infrarenal abdominal aortic aneurysm measuring 3 cm in diameter. Lymph nodes: Unremarkable. No enlarged lymph nodes. Urinary bladder: Unremarkable as visualized. Reproductive: Unremarkable as visualized. Bones/joints: Unremarkable. No acute fracture. Soft tissues: Unremarkable. CT/CT abdomen pelvis w con* [id number] IMPRESSION: 1. Minimal edema about the mid sigmoid colon in the area of several diverticuli may reflect a mild diverticulitis. 2. Fusiform infrarenal abdominal aortic aneurysm measuring 3 cm in diameter. 3. Hepatic steatosis. 4. Constipation.
[2022-11-11 19:20] LABS: Alanine Aminotransferase 21 U/L (0-41); Albumin Level 3.7 g/dL (3.5-5.2); Alkaline Phosphatase 65 U/L (40-130); Anion Gap 19.9 (5-19); Aspartate Amino Transferase 19 U/L (0-40); Blood Urea Nitrogen 17 mg/dL (8-23); Carbon Dioxide 20 mmol/L (22-29); Chloride 101 mmol/L (98-107); Globulin 3.5 g/dL (1.3-4.6); Glomerular Filtration Rate 83.7 mL/min (90-130); Glucose 119 mg/dL (65-115); Lipase 14 U/L (13-60); Osmolality Calculated 285 mOsm/kg (285-295); Potassium 4.9 mmol/L (3.5-5.1); Sodium 136 mmol/L (136-145); Total Bilirubin 0.5 mg/dL (0.15-1.2); Total Protein 7.2 g/dL (6.6-8.7)
[2022-11-11] MEDS: iohexol 350 mg/mL 500 mL Btl (per mL) IV (19:32)
[2022-11-11 19:40] LABS: Lactic Sepsis W/Reflex 1.1 mmol/L (0.5-2.2)
[2022-11-11] MEDS: fentaNYL 50 mcg/mL INJ 2mL IVP (19:48)
[2022-11-11 20:10] LABS: Add Urine Microscopic? YES; Bilirubin Urine Neg (Negative); Blood Urine 3+ (Negative); Glucose Urine UA Norm (Normal); Ketones Urine Negative (Negative); Leukocyte Esterase Urine Negative (Negative); Nitrate Urine Negative (Negative); Protein Urine Trace (Negative); Specific Gravity, Urine 1.005 (1.005-1.030); Urine Appearance Clear (CLEAR); Urine Color Yellow (Yellow); Urobilinogen Urine Norm (Negative); pH Urine 7 (5-7)
[2022-11-11 20:12] LABS: Bacteria Urine TRACE /hpf; Mucus Urine 1+ /hpf; RBC Urine 0-4 /hpf (0-2); Squamous Epithelial Cell Urine 0-4 /hpf (0-5); Transitional Epi Cells Urine 0-4 /hpf
[2022-11-11 20:13] LABS: Add Urine Culture? No; Hyaline Casts Urine 0-4 /lpf
[2022-11-11] MEDS: metroNIDAZOLE 500 MG Tablet PO (20:43)
[2022-11-11] MEDS: ciprofloxacin 500 mg Tablet PO (20:43)
--- NOTE | 2022-11-12 11:07 | DCPLANNER ---
Addendum entered by Veronica Aguiar 11/15/22 13:09: rehabilitation manager called [facility] to confirm that facility had received patients information. rehabilitation manager was told that facility had patients information, it will be reviewed, and clinic will call patient with appointment information. Original Note: rehabilitation manager had message to schedule a follow up appointment for patient with Dr. Brandon Dawson at [facility]. rehabilitation manager faxed patients information to the [facility] clinic, patients information will be reviewed, clinic will call patient with appointment information.
== END 2022-11-11 21:14 | disposition home or self-care (01) ==
PROVIDERS: Family Medicine; Emergency Provider Nurse Practitioner; PCP Electrodiagnostic Medicine
DX: K57.92 Diverticulitis of intestine, part unspecified, without perforation or abscess without bleeding (principal); K59.00 Constipation, unspecified; N39.0 Urinary tract infection, site not specified; I71.9 Aortic aneurysm of unspecified site, without rupture
CPT/HCPCS: 36415; 74177; 80053; 81001; 83605; 83690; 85025; 96361; 96374; 96375; 99285; J2405; J3010; J7030; Q9967